=== PATIENT | male | born 1935 | race Caucasian/White ===

== ENCOUNTER 2021-07-31 14:06 | Emergency (ER) | payer MEDICARE, OTHER | END 2021-07-31 15:59 | disposition home or self-care (01) | LOC: CSHERS 14:06 | DX: S00.83XA Contusion of other part of head, initial encounter (principal); I10 Essential (primary) hypertension; W19.XXXA Unspecified fall, initial encounter | CPT/HCPCS: 70450 ==

== ENCOUNTER 2021-12-23 23:51 | Emergency (ER) | payer MEDICARE, OTHER | END 2021-12-24 02:40 | disposition home or self-care (01) | LOC: CSHERS 23:51 | DX: S01.112A Laceration without foreign body of left eyelid and periocular area, initial encounter (principal); I10 Essential (primary) hypertension; Z79.899 Other long term (current) drug therapy; Z79.82 Long term (current) use of aspirin; W19.XXXA Unspecified fall, initial encounter | CPT/HCPCS: 12011; 70450 ==

== ENCOUNTER 2022-10-24 13:14 | Emergency (ER) | payer MEDICARE, OTHER ==
[2022-10-24] MEDS ORDERED: Lidocaine 1% w/Epinephrine 1:200K 30 ML VIAL ONE (15:01)
== END 2022-10-24 16:45 | disposition home or self-care (01) ==
LOC: CSHERS 13:14
DX: S51.811A Laceration without foreign body of right forearm, initial encounter (principal); I10 Essential (primary) hypertension; E78.5 Hyperlipidemia, unspecified
CPT/HCPCS: 12002; 70450